=== PATIENT | male | born 2005 | race Caucasian/White ===

== ENCOUNTER 2025-02-28 16:43 | Emergency (ER) | payer OTHER ==
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
[2025-02-28 18:23] VITALS: BP 137/88; PULSE 82; RESP 17; TEMP 98.7
== END 2025-02-28 18:20 | disposition home or self-care (01) ==
LOC: EC 16:43
DX: S00.83XA Contusion of other part of head, initial encounter (principal); S20.212A Contusion of left front wall of thorax, initial encounter; V89.2XXA Person injured in unspecified motor-vehicle accident, traffic, initial encounter; Y92.410 Unspecified street and highway as the place of occurrence of the external cause
CPT/HCPCS: 70450; 71046; 72125; 99285